=== PATIENT | female | born 1995 | race Caucasian/White ===

== ENCOUNTER → 2024-05-02 14:53 | Outpatient (REF) | payer BC, SELFPAY | LOC: RCS 14:53 | PROVIDERS: ATTENDING PHYSICIAN Internal Medicine Cardiovascular Disease; FAMILY PHYSICIAN Internal Medicine | DX: I34.0 Nonrheumatic mitral (valve) insufficiency (principal) | CPT/HCPCS: 93306 ==

== ENCOUNTER → 2024-11-26 08:28 | Outpatient (REF) | payer OTHER, SELFPAY | LOC: RCS 08:28 | PROVIDERS: ATTENDING PHYSICIAN Internal Medicine Cardiovascular Disease; FAMILY PHYSICIAN Internal Medicine | DX: I34.0 Nonrheumatic mitral (valve) insufficiency (principal); R06.09 Other forms of dyspnea | CPT/HCPCS: 93306; 93356 ==

== ENCOUNTER 2025-01-31 07:01 | Day surgery (SDC) | payer OTHER, SELFPAY | END 2025-01-31 09:12 | disposition home or self-care (01) | LOC: CATH 07:01 | PROVIDERS: ATTENDING PHYSICIAN Internal Medicine Cardiovascular Disease; FAMILY PHYSICIAN Internal Medicine; OTHER PHYSICIAN Internal Medicine Cardiovascular Disease | DX: I08.1 Rheumatic disorders of both mitral and tricuspid valves (principal); I08.8 Other rheumatic multiple valve diseases | CPT/HCPCS: 93312; 93320; 93325 ==